=== PATIENT | male | born 1955 | race Caucasian/White ===

== ENCOUNTER → 2020-12-31 | Outpatient (CLI) | payer MEDICARE, OTHER ==
[~2020-12-31] MED LIST: ASPIR 8181 MG PO; BRILINTA 90 MG90 MG PO; COREG 12.5MG12.5 MG PO; FISH OIL EC 1,1 EACH PO; GLIMEPIRIDE4 MG PO; HYDRALAZINE HCL25 MG PO; HYDROCHLOROTH12.5 M1 PO; JANUVIA100 MG PO; K-DUR TAB 10 M10 MEQ PO; LOSARTAN POTAS100 MG PO; NITROGLYCERIN0.4 MG SL; NORCO 5-325 TA1 EACH PO; NORVASC10 MG PO; NORVASC5 MG PO; PIOGLITAZONE HC15 MG PO; PRAVASTATIN SOD80 MG PO; XYZAL5 MG PO; ZETIA 10 MG TAB10 MG PO
== END ==
LOC: RT 10:14
DX: I10 Essential (primary) hypertension (principal); E11.9 Type 2 diabetes mellitus without complications
CPT/HCPCS: 93005

== ENCOUNTER 2021-05-11 12:21 | Emergency (ER) | payer MEDICARE, OTHER ==
[2021-05-11] MEDS ORDERED: BACTRIM DS TAB1 EACH PO (15:42)
[2021-05-11] MEDS ORDERED: CEPHALEXIN500 M1 PO (15:42)
[2021-05-11] MEDS ORDERED: PYRIDIUM200 MG PO (15:43)
== END 2021-05-11 16:02 | disposition home or self-care (01) ==
LOC: ER1 12:21
DX: N39.0 Urinary tract infection, site not specified (principal); N49.2 Inflammatory disorders of scrotum; I11.9 Hypertensive heart disease without heart failure; E11.9 Type 2 diabetes mellitus without complications; E78.5 Hyperlipidemia, unspecified; Z86.73 Personal history of transient ischemic attack (TIA), and cerebral infarction without residual deficits; Z95.5 Presence of coronary angioplasty implant and graft
CPT/HCPCS: 76870; 81001; 87086; 99284

== ENCOUNTER → 2021-05-28 | Outpatient (CLI) | payer MEDICARE, OTHER ==
[~2021-05-28] MED LIST changes: +BACTRIM DS TAB1 EACH PO; +CEPHALEXIN500 M1 PO; +PYRIDIUM200 MG PO
== END ==
LOC: HEART 5 07:53
DX: I10 Essential (primary) hypertension (principal); I25.10 Atherosclerotic heart disease of native coronary artery without angina pectoris
CPT/HCPCS: 93306

== ENCOUNTER 2022-02-09 20:32 | Emergency (ER) | payer MEDICARE, OTHER | END 2022-02-09 22:15 | disposition home or self-care (01) | LOC: ER1 20:32 | DX: R07.9 Chest pain, unspecified (principal); M54.2 Cervicalgia; I11.9 Hypertensive heart disease without heart failure; I25.10 Atherosclerotic heart disease of native coronary artery without angina pectoris; I25.2 Old myocardial infarction; E11.9 Type 2 diabetes mellitus without complications; E78.5 Hyperlipidemia, unspecified; Z95.5 Presence of coronary angioplasty implant and graft | CPT/HCPCS: 99284 ==